=== PATIENT | female | born 1935 | race Caucasian/White ===

== ENCOUNTER 2020-07-16 19:16 | Inpatient (IN) ==
[2020-07-16] MEDS ORDERED: Furosemide 40 MG/4 ML VIAL IVP ONE ×3 (19:41→22:38)
[2020-07-16 20:27] LABS: Basophils # 0.1 K/mcL (0.0-0.2); Basophils % 0.4 %; Eosinophils # 0.1 K/mcL (0.0-0.6); Eosinophils % 0.8 %; Hematocrit 42.8 % (35.3-44.9); Hemoglobin 13.1 g/dL (11.5-15.4); Immature Granulocytes % 1.1 % (0-4); Lymphocytes # 3.2 K/mcL (0.6-4.6); Lymphocytes % 19.4 %; Mean Corpuscular HGB Conc 30.6 g/dL (31.6-35.5); Mean Corpuscular Hemoglobin 32.8 pg (28.0-33.3); Mean Platelet Volume 11.3 fL (9.4-12.4); Monocytes # 1.2 K/mcL (0.0-1.3); Neutrophils # 11.7 K/mcL (1.6-8.9); Platelet Count 235 K/mcL (140-400); Red Cell Distribution Width 13.5 % (11.5-14.5); Segmented Neutrophils % 71.3 %; White Blood Count 16.4 K/mcL (4.3-11.1)
[2020-07-16 20:34] LABS: INR 1.7; Prothrombin Time 19.2 Seconds (9.4-12.1)
[2020-07-16 20:41] LABS: Albumin 3.4 g/dL (3.5-5.7); Albumin/Globulin Ratio 1.5 (1.1-2.2); Bilirubin,Total 0.6 mg/dL (0.3-1.0); Calcium 8.1 mg/dL (8.6-10.3); Globulin 2.2 g/dL (2.4-3.5); Potassium 4.4 mEq/L (3.5-5.1); Total Protein 5.6 g/dL (6.4-8.9)
[2020-07-16] MEDS ORDERED: levoFLOXacin 750 MG/150 ML 750 MG/150 ML BAG IVPB ONE (20:45)
[2020-07-16 20:47] LABS: Troponin I 0.05 ng/mL (< 0.04)
[2020-07-16] MEDS ORDERED: 0.9 % Sodium Chloride 1,000 ML IVC SCH (21:00)
[2020-07-16] MEDS ORDERED: Ondansetron ODT 4 MG TAB.RAPDIS SL PRN ×2 (22:03→22:38)
[2020-07-16] MEDS ORDERED: Naloxone 0.4 MG/ML INJ IVP PRN ×2 (22:03→22:38)
[2020-07-16] MEDS: Sennosides 8.6 MG TABLET PO SCH (23:11)
[2020-07-17] MEDS ORDERED: Melatonin 3 MG TABLET PO ONE (01:46)
[2020-07-17] MEDS: predniSONE 10 MG TABLET PO SCH (08:13)
[2020-07-17] MEDS: Cholecalciferol (D-3) 1,000 UNIT (25MCG) TABLET PO SCH (08:13)
[2020-07-17] MEDS: Magnesium Oxide 400 MG TABLET PO SCH ×2 (08:13→20:16)
[2020-07-17] MEDS: Ipratropium/Albuterol Neb 3 ML IH PRN ×3 (08:32→23:23)
[2020-07-17] MEDS ORDERED: *HR* Rivaroxaban 10 MG TABLET PO SCH (09:00)
[2020-07-17] MEDS ORDERED: 0.9 % Sodium Chloride 500 ML IVC ONE (09:27)
[2020-07-17] MEDS: 0.9 % Sodium Chloride 1,000 ML IVC SCH (12:01)
[2020-07-17] MEDS: Doxycycline 100 MG in 0.9 % Sodium Chloride Mini Bag 100 ML IVPB SCH (17:35)
[2020-07-17 18:57] LABS: Adenovirus Not Detected (Not Detect); Bordetella Pertussis Not Detected (Not Detect); Chlamydophila pneumoniae Not Detected (Not Detect); Coronavirus 229E Not Detected (Not Detect); Coronavirus HKU1 Not Detected (Not Detect); Coronavirus NL63 Not Detected (Not Detect); Coronavirus OC43 Not Detected (Not Detect); Human Metapneumovirus Not Detected (Not Detect); Human Rhinovirus/Enterovirus DETECTED (Not Detect); Influenza A Subtype 2009 H1 Not Detected (Not Detect); Influenza B Not Detected (Not Detect); Mycoplasma pneumoniae Not Detected (Not Detect); Parainfluenza Virus 1 Not Detected (Not Detect); Parainfluenza Virus 2 Not Detected (Not Detect); Parainfluenza Virus 3 Not Detected (Not Detect); Parainfluenza Virus 4 Not Detected (Not Detect); Respiratory Syncytial Virus Not Detected (Not Detect)
[2020-07-17] MEDS: Mirtazapine 15 MG TABLET PO SCH (20:16)
[2020-07-18] MEDS: 0.9 % Sodium Chloride 1,000 ML IVC SCH ×2 (00:46→00:48)
[2020-07-18] MEDS: Doxycycline 100 MG in 0.9 % Sodium Chloride Mini Bag 100 ML IVPB SCH ×2 (05:29→17:29)
[2020-07-18] MEDS: Magnesium Oxide 400 MG TABLET PO SCH ×2 (09:55→20:14)
[2020-07-18] MEDS: Cholecalciferol (D-3) 1,000 UNIT (25MCG) TABLET PO SCH (09:56)
[2020-07-18] MEDS: predniSONE 10 MG TABLET PO SCH (09:56)
[2020-07-18 11:37] LABS: Basophils % 0.2 %; Eosinophils % 0.1 %; Hematocrit 36.7 % (35.3-44.9); Hemoglobin 11.9 g/dL (11.5-15.4); Immature Granulocytes % 0.9 % (0-4); Lymphocytes % 9.8 %; Mean Corpuscular HGB Conc 32.4 g/dL (31.6-35.5); Mean Corpuscular Hemoglobin 33.3 pg (28.0-33.3); Mean Corpuscular Volume 102.8 fL (83.0-100.0); Mean Platelet Volume 11.1 fL (9.4-12.4); Monocytes # 0.9 K/mcL (0.0-1.3); Monocytes % 8.9 %; Neutrophils # 8.4 K/mcL (1.6-8.9); Platelet Count 181 K/mcL (140-400); Red Blood Count 3.57 M/mcL (3.82-4.97); Red Cell Distribution Width 13.3 % (11.5-14.5); Segmented Neutrophils % 80.1 %; White Blood Count 10.5 K/mcL (4.3-11.1)
[2020-07-18 11:54] LABS: Calcium 7.3 mg/dL (8.6-10.3); Potassium 3.8 mEq/L (3.5-5.1)
[2020-07-18] MEDS: levoFLOXacin 750 MG/150 ML 750 MG/150 ML BAG IVPB SCH (12:26)
[2020-07-18] MEDS: Ipratropium 1 PUFF INHALER IH SCH ×2 (15:59→21:35)
[2020-07-18] MEDS ORDERED: Albuterol 2.5 MG/3 ML NEBULIZER IH SCH (16:00)
[2020-07-18] MEDS: *HR* Rivaroxaban 15 MG TABLET PO SCH (17:30)
[2020-07-18 18:54] LABS: Adenovirus Not Detected (Not Detect); Bordetella Pertussis Not Detected (Not Detect); Chlamydophila pneumoniae Not Detected (Not Detect); Coronavirus 229E Not Detected (Not Detect); Coronavirus HKU1 Not Detected (Not Detect); Coronavirus NL63 Not Detected (Not Detect); Coronavirus OC43 Not Detected (Not Detect); Human Metapneumovirus Not Detected (Not Detect); Human Rhinovirus/Enterovirus Not Detected (Not Detect); Influenza A Subtype 2009 H1 Not Detected (Not Detect); Influenza B Not Detected (Not Detect); Mycoplasma pneumoniae Not Detected (Not Detect); Parainfluenza Virus 1 Not Detected (Not Detect); Parainfluenza Virus 2 Not Detected (Not Detect); Parainfluenza Virus 3 Not Detected (Not Detect); Parainfluenza Virus 4 Not Detected (Not Detect); Respiratory Syncytial Virus Not Detected (Not Detect); SARS-CoV-2 Not Detected (Not Detect)
[2020-07-18] MEDS: Mirtazapine 15 MG TABLET PO SCH (20:14)
[2020-07-18] MEDS ORDERED: Acetaminophen 325 MG TABLET PO PRN (22:21)
[2020-07-18] MEDS ORDERED: Melatonin 3 MG TABLET PO PRN (22:22)
[2020-07-18 23:30] LABS: Bilirubin,Urine Negative (Negative); Blood,Urine Negative (Negative); Clarity,Urine Clear (Clear); Color,Urine Yellow (Yellow); Glucose,Urine (UA) Normal (Normal); Ketones,Urine Negative (Negative); Leukocyte Esterase,Urine Negative (Negative); Nitrite,Urine Negative (Negative); Protein,Urine Negative (Neg-Trace); Urobilinogen,Urine Normal (Normal)
[2020-07-19] MEDS: Ipratropium 1 PUFF INHALER IH SCH ×4 (04:00→21:43)
[2020-07-19] MEDS: Sennosides 8.6 MG TABLET PO SCH ×3 (05:46→21:53)
[2020-07-19 05:59] LABS: Basophils % 0.2 %; Eosinophils % 0.3 %; Hematocrit 39.3 % (35.3-44.9); Hemoglobin 12.8 g/dL (11.5-15.4); Immature Granulocytes % 0.8 % (0-4); Lymphocytes # 1.2 K/mcL (0.6-4.6); Lymphocytes % 12.2 %; Mean Corpuscular HGB Conc 32.6 g/dL (31.6-35.5); Mean Corpuscular Hemoglobin 32.9 pg (28.0-33.3); Mean Platelet Volume 11.6 fL (9.4-12.4); Monocytes # 0.9 K/mcL (0.0-1.3); Monocytes % 9.4 %; Neutrophils # 7.7 K/mcL (1.6-8.9); Platelet Count 187 K/mcL (140-400); Red Blood Count 3.89 M/mcL (3.82-4.97); Red Cell Distribution Width 13.2 % (11.5-14.5); Segmented Neutrophils % 77.1 %; White Blood Count 9.9 K/mcL (4.3-11.1)
[2020-07-19] MEDS: Doxycycline 100 MG in 0.9 % Sodium Chloride Mini Bag 100 ML IVPB SCH ×2 (06:01→18:23)
[2020-07-19 06:02] LABS: Alanine Aminotransferase 46 Units/L (7-52); Albumin/Globulin Ratio 1.4 (1.1-2.2); Alkaline Phosphatase 51 Units/L (34-104); Aspartate Amino Transferase 24 Units/L (13-39); BUN/Creatinine Ratio 17 (6-26); Bilirubin,Total 0.8 mg/dL (0.3-1.0); Blood Urea Nitrogen 16 mg/dL (8-23); Carbon Dioxide 28 mEq/L (23-29); Chloride 103 mEq/L (98-107); Globulin 2.2 g/dL (2.4-3.5); Glucose 94 mg/dL (70-105); Magnesium 1.3 mg/dL (1.6-2.6); Osmolality,Calculated 291 (280-300); Potassium 3.4 mEq/L (3.5-5.1); Sodium 140 mEq/L (136-145); Total Protein 5.2 g/dL (6.4-8.9); eGFR For African Americans > 60 (> 60); eGFR For Non-African Americans 57 (> 60)
[2020-07-19] MEDS: Magnesium Oxide 400 MG TABLET PO SCH ×3 (09:32→21:52)
[2020-07-19] MEDS: Cholecalciferol (D-3) 1,000 UNIT (25MCG) TABLET PO SCH (09:33)
[2020-07-19] MEDS: predniSONE 10 MG TABLET PO SCH (09:33)
[2020-07-19] MEDS: polyethylene glycoL 3350 17 GM POWD.PACK PO SCH (16:18)
[2020-07-19] MEDS: *HR* Rivaroxaban 15 MG TABLET PO SCH (16:19)
[2020-07-19] MEDS: Mirtazapine 15 MG TABLET PO SCH ×2 (21:26→21:53)
[2020-07-20] MEDS: Ipratropium 1 PUFF INHALER IH SCH ×4 (04:32→20:54)
[2020-07-20] MEDS: Doxycycline 100 MG in 0.9 % Sodium Chloride Mini Bag 100 ML IVPB SCH ×2 (05:43→18:01)
[2020-07-20] MEDS ORDERED: Nitroglycerin 0.4 MG TAB.SUBL SL PRN (09:11)
[2020-07-20] MEDS ORDERED: Nitroglycerin 0.4 MG TAB.SUBL SL ONE (09:14)
[2020-07-20] MEDS ORDERED: Mag Hydrox/Al Hydrox/Simeth 30 ML UDC PO ONE (09:16)
[2020-07-20] MEDS: Magnesium Oxide 400 MG TABLET PO SCH ×2 (09:24→21:29)
[2020-07-20] MEDS: Cholecalciferol (D-3) 1,000 UNIT (25MCG) TABLET PO SCH (09:24)
[2020-07-20] MEDS: predniSONE 10 MG TABLET PO SCH (09:24)
[2020-07-20] MEDS: polyethylene glycoL 3350 17 GM POWD.PACK PO SCH (09:25)
[2020-07-20] MEDS: Sennosides 8.6 MG TABLET PO SCH ×2 (09:25→21:29)
[2020-07-20 09:35] LABS: Basophils % 0.3 %; Eosinophils # 0.1 K/mcL (0.0-0.6); Eosinophils % 1.8 %; Hematocrit 41.4 % (35.3-44.9); Hemoglobin 13.2 g/dL (11.5-15.4); Lymphocytes # 1.7 K/mcL (0.6-4.6); Lymphocytes % 21.1 %; Mean Corpuscular HGB Conc 31.9 g/dL (31.6-35.5); Mean Corpuscular Hemoglobin 32.7 pg (28.0-33.3); Mean Corpuscular Volume 102.5 fL (83.0-100.0); Mean Platelet Volume 11.4 fL (9.4-12.4); Monocytes # 0.7 K/mcL (0.0-1.3); Neutrophils # 5.3 K/mcL (1.6-8.9); Platelet Count 150 K/mcL (140-400); Red Blood Count 4.04 M/mcL (3.82-4.97); Red Cell Distribution Width 13.3 % (11.5-14.5); Segmented Neutrophils % 66.8 %; White Blood Count 7.9 K/mcL (4.3-11.1)
[2020-07-20] MEDS: levoFLOXacin 750 MG/150 ML 750 MG/150 ML BAG IVPB SCH (12:17)
[2020-07-20 13:24] LABS: Potassium 4.5 mEq/L (3.5-5.1)
[2020-07-20] MEDS: *HR* Rivaroxaban 15 MG TABLET PO SCH (15:52)
[2020-07-20] MEDS ORDERED: Furosemide 20 MG/2 ML VIAL IVP ONE (17:26)
[2020-07-20] MEDS: Mirtazapine 15 MG TABLET PO SCH (21:28)
[2020-07-21] MEDS: Doxycycline 100 MG in 0.9 % Sodium Chloride Mini Bag 100 ML IVPB SCH (05:34)
[2020-07-21 08:06] LABS: Hematocrit 36.6 % (35.3-44.9); Hemoglobin 11.9 g/dL (11.5-15.4); Mean Corpuscular HGB Conc 32.5 g/dL (31.6-35.5); Mean Corpuscular Hemoglobin 32.8 pg (28.0-33.3); Mean Corpuscular Volume 100.8 fL (83.0-100.0); Mean Platelet Volume 10.9 fL (9.4-12.4); Platelet Count 184 K/mcL (140-400); Red Blood Count 3.63 M/mcL (3.82-4.97); Red Cell Distribution Width 13.2 % (11.5-14.5); White Blood Count 8.4 K/mcL (4.3-11.1)
[2020-07-21] MEDS: Spironolactone 25 MG TABLET PO SCH ×2 (08:14→08:46)
[2020-07-21] MEDS: Furosemide 20 MG TABLET PO SCH ×2 (08:14→08:46)
[2020-07-21] MEDS: Cholecalciferol (D-3) 1,000 UNIT (25MCG) TABLET PO SCH ×2 (08:14→08:46)
[2020-07-21] MEDS: Sennosides 8.6 MG TABLET PO SCH ×2 (08:14→08:46)
[2020-07-21] MEDS: Magnesium Oxide 400 MG TABLET PO SCH ×2 (08:14→08:46)
[2020-07-21] MEDS: predniSONE 10 MG TABLET PO SCH ×2 (08:15→08:46)
[2020-07-21] MEDS: polyethylene glycoL 3350 17 GM POWD.PACK PO SCH (08:15)
[2020-07-21 08:23] LABS: Albumin 2.7 g/dL (3.5-5.7); Albumin/Globulin Ratio 1.4 (1.1-2.2); Bilirubin,Total 0.6 mg/dL (0.3-1.0); Calcium 8.1 mg/dL (8.6-10.3); Globulin 1.9 g/dL (2.4-3.5); Magnesium 1.6 mg/dL (1.6-2.6); Potassium 4.1 mEq/L (3.5-5.1); Total Protein 4.6 g/dL (6.4-8.9)
[2020-07-21] MEDS: Ipratropium 1 PUFF INHALER IH SCH ×2 (09:08→15:47)
[2020-07-21 12:37] VITALS: BP 97/66
[2020-07-21] MEDS: *HR* Rivaroxaban 15 MG TABLET PO SCH (16:39)
== END 2020-07-21 17:06 | disposition home health service (06) | DRG 194 ==
LOC: EMEROOGRE 19:16 → INPGRE 22:11
PROVIDERS: ADMIT Family Medicine; ATTEND Family Medicine